=== PATIENT | female | born 1990 | race Caucasian/White ===

== ENCOUNTER 2019-03-27 17:44 | Inpatient (IN) | payer OTHER ==
--- NOTE | 2019-03-27 18:25 | ER Document Report ---
ED Medical Screen (RME) - General Chief Complaint: General Weakness Stated Complaint: syncope Time Seen by Provider: 03/27/19 18:10 Mode of Arrival: Medic Information source: Patient Notes: Patient presents stating that she had a syncopal episode at home in which she suspects that her blood sugar may have been low. Patient is an insulin- dependent diabetic and wears a pump. Patient states that after she passed out she drank a lot of orange juice and then checked her blood sugar and her blood sugar was over 300. Patient states since then she has had lower pelvic pain. Patient is currently 8 weeks G5, P0. Patient denies any urinary symptoms or vaginal bleeding or discharge. Patient complains of generalized weakness to her extremities I have greeted and performed a rapid initial assessment of this patient. A comprehensive ED assessment and evaluation of the patient, analysis of test results and completion of the medical decision making process will be conducted by additional ED providers. TRAVEL OUTSIDE OF THE [place] IN LAST 30 DAYS: No - Related Data Allergies/Adverse Reactions: No Known Allergies Allergy (Verified 03/27/19 17:45) Physical Exam - Abdominal Inspection: Obese Tenderness: Tender - Lower pelvic tenderness
[2019-03-27 19:16] LABS: HEMATOCRIT 40.8 % (36.0-47.0); MEAN CORPUSCULAR HEMOGLOBIN 28.7 pg (27.0-33.4); MEAN CORPUSCULAR HGB CONC 34.4 g/dL (32.0-36.0); MEAN CORPUSCULAR VOLUME 84 fl (80-97); PLATELET COUNT 280 10^3/uL (150-450); RED BLOOD COUNT 4.88 10^6/uL (3.72-5.28); RED CELL DISTRIBUTION WIDTH 12.5 % (11.5-14.0); WHITE BLOOD COUNT 23.2 10^3/uL (4.0-10.5)
[2019-03-27 19:31] LABS: ALBUMIN 4.7 g/dL (3.5-5.0); ALKALINE PHOSPHATASE 68 U/L (38-126); ANION GAP 11 (5-19); ASPARTATE AMINO TRANSFERASE 112 U/L (14-36); BILIRUBIN,DIRECT 0.3 mg/dL (0.0-0.4); BILIRUBIN,TOTAL 1.2 mg/dL (0.2-1.3); BLOOD UREA NITROGEN 17 mg/dL (7-20); CALCIUM 9.9 mg/dL (8.4-10.2); CARBON DIOXIDE 22 mmol/L (22-30); CHLORIDE 103 mmol/L (98-107); GLUCOSE 124 mg/dL (75-110); POTASSIUM 4.3 mmol/L (3.6-5.0); TOTAL PROTEIN 7.4 g/dL (6.3-8.2)
[2019-03-27 19:37] LABS: VENOUS BLOOD BASE EXCESS -3.2 mmol/L; VENOUS BLOOD HCO3 19.9 mmol/L (20-32); VENOUS BLOOD PCO2 30.6 mmHg (35-63); VENOUS BLOOD PH 7.43 (7.30-7.42)
[2019-03-27 19:37] LABS: ABSOLUTE LYMPHOCYTES# (MANUAL) 1.2 10^3/uL (0.5-4.7); ABSOLUTE MONOCYTES # (MANUAL) 1.2 10^3/uL (0.1-1.4); BAND NEUTROPHILS % (MANUAL) 3 % (3-5); BASOPHILS % (MANUAL) 0 % (0-2); EOSINOPHILS % (MANUAL) 0 % (0-6); LYMPHOCYTES % (MANUAL) 4 % (13-45); MONOCYTES % (MANUAL) 5 % (3-13); RBC MORPHOLOGY COMMENT NORMO-CYTIC/CHROMIC; SEGMENTED NEUTROPHILS % (MAN) 87 % (42-78); TOTAL CELLS COUNTED 100
[2019-03-27 19:38] LABS: PLATELET COMMENT ADEQUATE
[2019-03-27] MEDS ORDERED: RINGERS SOLUTION,LACTATED 1,000 ML IV ONE ×2 (20:24→20:49)
--- NOTE | 2019-03-27 20:32 | RADIOLOGY REPORT (SQ) ---
US PELVIS EXAM DATE: 03/27/2019 6:22 PM CDT HISTORY: Early . Pelvic pain. COMPARISON: None. TECHNIQUE: Grayscale, color Doppler, and spectral Doppler ultrasound images of the pelvis were obtained. FINDINGS: There is an intrauterine gestational sac without a yolk sac seen. The crown-rump length measures 1.9 cm corresponding to 8 weeks 3 days of . The heart rate is 170 bpm. The cervix is 2.8 cm in length and closed. The right ovary is not visualized. The left ovary measures 3.4-1.9 cm cyst. Normal color Doppler blood flow is seen in the left ovary. No pelvic free fluid. IMPRESSION: Single live IUP with estimated gestational age 8 weeks 3 days.
[2019-03-27 21:08] LABS: ACETAMINOPHEN 11 ug/mL (10-30)
--- NOTE | 2019-03-27 21:08 | EKG REPORT ---
SEVERITY:- OTHERWISE NORMAL ECG - SINUS RHYTHM RIGHT AXIS DEVIATION : Confirmed by: Yuri Cantor MD 27-Mar-2019 21:08:17
[2019-03-27 21:16] LABS: ALCOHOL < 10 mg/dL (NONE DETECTED); SALICYLATE < 1.0 mg/dL (2.0-20.0)
[2019-03-27 22:59] LABS: APPEARANCE,URINE SLIGHTLY-CLOUDY; BILIRUBIN,URINE NEGATIVE (NEGATIVE); COLOR,URINE YELLOW; GLUCOSE, URINE >=500 mg/dL (NEGATIVE); KETONES,URINE 20 mg/dL (NEGATIVE); LEUKOCYTE ESTERASE,URINE NEGATIVE (NEGATIVE); NITRITE,URINE NEGATIVE (NEGATIVE); PROTEIN,URINE NEGATIVE (NEGATIVE); UROBILINOGEN,URINE NEGATIVE mg/dL (<2.0)
[2019-03-27 23:27] LABS: URINE AMPHETAMINES SCREEN NEGATIVE; URINE BARBITURATES SCREEN NEGATIVE; URINE BENZODIAZEPINES SCREEN NEGATIVE; URINE COCAINE SCREEN NEGATIVE; URINE MARIJUANA (THC) SCREEN NEGATIVE; URINE METHADONE SCREEN NEGATIVE; URINE PHENCYCLIDINE SCREEN NEGATIVE
[2019-03-28] MEDS ORDERED: MORPHINE SULFATE 10 MG/ML INJ IV ONE (00:07)
[2019-03-28] MEDS ORDERED: NORMAL SALINE 1000 ML 1,000 ML IV PRN (01:15)
--- NOTE | 2019-03-28 02:28 | ER Document Report ---
ED General - General Chief Complaint: General Weakness Stated Complaint: syncope Time Seen by Provider: 03/27/19 18:10 Mode of Arrival: Medic Notes: Patient is a 28-year-old female G5, P0 currently 8 weeks type I diabetic with insulin pump presents to the emergency department for a syncopal episode. Patient states she woke up and attempted to get out of bed. States she was feeling lightheaded and dizzy and had a syncopal episode. Patient states she feels as though she was lying on the ground for approximately 45 minutes. Patient's denying loss of consciousness for 45 minutes. States she was just too weak to get herself off the ground. Patient states her insulin tubing had also fallen out at that time. Patient states she thought the syncopal episode was due to her low blood sugars so she drank some orange juice. Patient states when she was able to check her sugar it was noted to be 300 mg/d L. States she did give herself an insulin bolus and was able to get her insulin pump back in place. Patient's denying any nausea, vomiting, dysuria, vaginal bleeding. She is complaining of generalized abdominal cramping in bilateral paraspinal lumbar pain. Patient states when she fell she fell on her buttocks and back. Patient is denying falling on her stomach. Patient's complaint upon initial examination is a pins and needle feelings in bilateral arms and bilateral legs. Patient voices she generally just feels weak. TRAVEL OUTSIDE OF THE [place] IN LAST 30 DAYS: No - Related Data Allergies/Adverse Reactions: No Known Allergies Allergy (Verified 03/27/19 17:45) Past Medical History - General Information source: Patient - Social History Smoking Status: Unknown if Ever Smoked Family History: Reviewed & Not Pertinent Patient has suicidal ideation: No Patient has homicidal ideation: No Review of Systems - Review of Systems Constitutional: denies: Fever EENT: No symptoms reported Cardiovascular: denies: Chest pain, Dyspnea Respiratory: denies: Cough, Short of breath Gastrointestinal: Abdominal pain. denies: Vomiting Genitourinary: denies: Burning, Dysuria, Hematuria, Incontinence Female Genitourinary: See HPI Musculoskeletal: See HPI Skin: No symptoms reported Hematologic/Lymphatic: No symptoms reported Neurological/Psychological: See HPI Physical Exam - Vital signs Vitals: Pulse Ox 98 03/27/19 19:13 - Notes Notes: GENERAL: Alert, interacts well. HEAD: Normocephalic, atraumatic. EYES: Pupils equal, round, and reactive to light. Extraocular movements intact. ENT: Oral mucosa moist, tongue midline. NECK: Full range of motion. Supple. Trachea midline. LUNGS: Clear to auscultation bilaterally, no wheezes, rales, or rhonchi. No respiratory distress. HEART: Regular rate and rhythm. No murmur ABDOMEN: Soft, generalized cramping noted bilateral quadrants, no McBurney's point tenderness no Harper sign. Non-distended. Bowel sounds present in all 4 quadrants. EXTREMITIES: Moves all 4 extremities spontaneously. No edema, normal radial and dorsalis pedis pulses bilaterally. No cyanosis. 5/5 strength noted all 4 extremities. BACK: no cervical, thoracic, lumbar midline tenderness. No saddle anesthesia, normal distal neurovascular exam. NEUROLOGICAL: Alert and oriented x3. Normal speech. PSYCH: Normal affect, normal mood. SKIN: Warm, dry, normal turgor. No rashes or lesions noted. Course - Re-evaluation Re-evalutation: Laboratory 03/27/19 03/27/19 03/27/19 19:03 19:03 19:03 WBC 23.2 H RBC 4.88 Hgb 14.0 Hct 40.8 MCV 84 MCH 28.7 MCHC 34.4 RDW 12.5 Plt Count 280 Lymph % (Auto) Not Reportable [place] % (Auto) Not Reportable Eos % (Auto) Not Reportable Baso % (Auto) Not Reportable Absolute Neuts (auto) Not Reportable Absolute Lymphs (auto) Not Reportable Absolute Monos (auto) Not Reportable Absolute Eos (auto) Not Reportable Absolute Basos (auto) Not Reportable Total Counted 100 Seg Neutrophils % Not Reportable Seg Neuts % (Manual) 87 H Band Neutrophils % 3 Lymphocytes % (Manual) 4 L Atypical Lymphs % 1 Monocytes % (Manual) 5 Eosinophils % (Manual) 0 Basophils % (Manual) 0 Abs Neuts (Manual) 20.9 H Abs Lymphs (Manual) 1.2 Abs Monocytes (Manual) 1.2 Absolute Eos (Manual) 0.0 Abs Basophils (Manual) 0.0 Platelet Comment ADEQUATE RBC Morph Comment NORMO-CYTIC/CHROMIC VBG pH VBG pCO2 VBG HCO3 VBG Base Excess Sodium 136.3 L Potassium 4.3 Chloride 103 Carbon Dioxide 22 Anion Gap 11 BUN 17 Creatinine 0.60 Est GFR ( Amer) > 60 Est GFR (MDRD) Non-Af > 60 Glucose 124 H POC Glucose Hemoglobin A1c % Lactic Acid Calcium 9.9 Magnesium 1.6 Total Bilirubin 1.2 Direct Bilirubin 0.3 Neonat Total Bilirubin Not Reportable Neonat Direct Bilirubin Not Reportable Neonat Indirect Bili Not Reportable AST 112 H ALT 29 Alkaline Phosphatase 68 Creatine Kinase 2697 H Total Protein 7.4 Albumin 4.7 Beta HCG, Quant 654601.00 H Total Beta HCG POSITIVE Urine Color Urine Appearance Urine pH Ur Specific [place] Urine Protein Urine Glucose (UA) Urine Ketones Urine Blood Urine Nitrite Urine Bilirubin Urine Urobilinogen Ur Leukocyte Esterase Urine WBC (Auto) Urine RBC (Auto) Urine Bacteria (Auto) Squamous Epi Cells Auto Urine Mucus (Auto) Urine Ascorbic Acid Salicylates Urine Opiates Screen Urine Methadone Screen Acetaminophen Ur Barbiturates Screen Ur Phencyclidine Scrn Ur Amphetamines Screen U Benzodiazepines Scrn Urine Cocaine Screen U Marijuana (THC) Screen Serum Alcohol Chlamydia DNA (PCR) N.gonorrhoeae DNA (PCR) Blood Type Rhogam Indicated 03/27/19 03/27/19 03/27/19 19:03 19:03 19:05 WBC RBC Hgb Hct MCV MCH MCHC RDW Plt Count Lymph % (Auto) [place] % (Auto) Eos % (Auto) Baso % (Auto) Absolute Neuts (auto) Absolute Lymphs (auto) Absolute Monos (auto) Absolute Eos (auto) Absolute Basos (auto) Total Counted Seg Neutrophils % Seg Neuts % (Manual) Band Neutrophils % Lymphocytes % (Manual) Atypical Lymphs % Monocytes % (Manual) Eosinophils % (Manual) Basophils % (Manual) Abs Neuts (Manual) Abs Lymphs (Manual) Abs Monocytes (Manual) Absolute Eos (Manual) Abs Basophils (Manual) Platelet Comment RBC Morph Comment VBG pH VBG pCO2 VBG HCO3 VBG Base Excess Sodium Potassium Chloride Carbon Dioxide Anion Gap BUN Creatinine Est GFR ( Amer) Est GFR (MDRD) Non-Af Glucose POC Glucose Hemoglobin A1c % 5.8 Lactic Acid Calcium Magnesium Total Bilirubin Direct Bilirubin Neonat Total Bilirubin Neonat Direct Bilirubin Neonat Indirect Bili AST ALT Alkaline Phosphatase Creatine Kinase Total Protein Albumin Beta HCG, Quant Total Beta HCG Urine Color Urine Appearance Urine pH Ur Specific [place] Urine Protein Urine Glucose (UA) Urine Ketones Urine Blood Urine Nitrite Urine Bilirubin Urine Urobilinogen Ur Leukocyte Esterase Urine WBC (Auto) Urine RBC (Auto) Urine Bacteria (Auto) Squamous Epi Cells Auto Urine Mucus (Auto) Urine Ascorbic Acid Salicylates < 1.0 L Urine Opiates Screen Urine Methadone Screen Acetaminophen 11 Ur Barbiturates Screen Ur Phencyclidine Scrn Ur Amphetamines Screen U Benzodiazepines Scrn Urine Cocaine Screen U Marijuana (THC) Screen Serum Alcohol < 10 Chlamydia DNA (PCR) N.gonorrhoeae DNA (PCR) Blood Type B NEGATIVE Rhogam Indicated RHOGAM NOT REQUESTED 03/27/19 03/27/19 03/27/19 19:23 19:24 20:30 WBC RBC Hgb Hct MCV MCH MCHC RDW Plt Count Lymph % (Auto) [place] % (Auto) Eos % (Auto) Baso % (Auto) Absolute Neuts (auto) Absolute Lymphs (auto) Absolute Monos (auto) Absolute Eos (auto) Absolute Basos (auto) Total Counted Seg Neutrophils % Seg Neuts % (Manual) Band Neutrophils % Lymphocytes % (Manual) Atypical Lymphs % Monocytes % (Manual) Eosinophils % (Manual) Basophils % (Manual) Abs Neuts (Manual) Abs Lymphs (Manual) Abs Monocytes (Manual) Absolute Eos (Manual) Abs Basophils (Manual) Platelet Comment RBC Morph Comment VBG pH 7.43 H VBG pCO2 30.6 L VBG HCO3 19.9 L VBG Base Excess -3.2 Sodium Potassium Chloride Carbon Dioxide Anion Gap BUN Creatinine Est GFR ( Amer) Est GFR (MDRD) Non-Af Glucose POC Glucose 124 H Hemoglobin A1c % Lactic Acid 1.1 Calcium Magnesium Total Bilirubin Direct Bilirubin Neonat Total Bilirubin Neonat Direct Bilirubin Neonat Indirect Bili AST ALT Alkaline Phosphatase Creatine Kinase Total Protein Albumin Beta HCG, Quant Total Beta HCG Urine Color Urine Appearance Urine pH Ur Specific [place] Urine Protein Urine Glucose (UA) Urine Ketones Urine Blood Urine Nitrite Urine Bilirubin Urine Urobilinogen Ur Leukocyte Esterase Urine WBC (Auto) Urine RBC (Auto) Urine Bacteria (Auto) Squamous Epi Cells Auto Urine Mucus (Auto) Urine Ascorbic Acid Salicylates Urine Opiates Screen Urine Methadone Screen Acetaminophen Ur Barbiturates Screen Ur Phencyclidine Scrn Ur Amphetamines Screen U Benzodiazepines Scrn Urine Cocaine Screen U Marijuana (THC) Screen Serum Alcohol Chlamydia DNA (PCR) N.gonorrhoeae DNA (PCR) Blood Type Rhogam Indicated 03/27/19 03/27/19 03/27/19 21:28 22:34 22:34 WBC RBC Hgb Hct MCV MCH MCHC RDW Plt Count Lymph % (Auto) [place] % (Auto) Eos % (Auto) Baso % (Auto) Absolute Neuts (auto) Absolute Lymphs (auto) Absolute Monos (auto) Absolute Eos (auto) Absolute Basos (auto) Total Counted Seg Neutrophils % Seg Neuts % (Manual) Band Neutrophils % Lymphocytes % (Manual) Atypical Lymphs % Monocytes % (Manual) Eosinophils % (Manual) Basophils % (Manual) Abs Neuts (Manual) Abs Lymphs (Manual) Abs Monocytes (Manual) Absolute Eos (Manual) Abs Basophils (Manual) Platelet Comment RBC Morph Comment VBG pH VBG pCO2 VBG HCO3 VBG Base Excess Sodium Potassium Chloride Carbon Dioxide Anion Gap BUN Creatinine Est GFR ( Amer) Est GFR (MDRD) Non-Af Glucose POC Glucose 99 Hemoglobin A1c % Lactic Acid Calcium Magnesium Total Bilirubin Direct Bilirubin Neonat Total Bilirubin Neonat Direct Bilirubin Neonat Indirect Bili AST ALT Alkaline Phosphatase Creatine Kinase Total Protein Albumin Beta HCG, Quant Total Beta HCG Urine Color YELLOW Urine Appearance SLIGHTLY-CLOUDY Urine pH 6.0 Ur Specific [place] 1.020 Urine Protein NEGATIVE Urine Glucose (UA) >=500 H Urine Ketones 20 H Urine Blood MODERATE H Urine Nitrite NEGATIVE Urine Bilirubin NEGATIVE Urine Urobilinogen NEGATIVE Ur Leukocyte Esterase NEGATIVE Urine WBC (Auto) 1 Urine RBC (Auto) 65 Urine Bacteria (Auto) TRACE Squamous Epi Cells Auto 1 Urine Mucus (Auto) RARE Urine Ascorbic Acid NEGATIVE Salicylates Urine Opiates Screen Urine Methadone Screen Acetaminophen Ur Barbiturates Screen Ur Phencyclidine Scrn Ur Amphetamines Screen U Benzodiazepines Scrn Urine Cocaine Screen U Marijuana (THC) Screen Serum Alcohol Chlamydia DNA (PCR) NOT DETECTED N.gonorrhoeae DNA (PCR) NOT DETECTED Blood Type Rhogam Indicated 03/27/19 03/27/19 22:34 23:45 WBC RBC Hgb Hct MCV MCH MCHC RDW Plt Count Lymph % (Auto) [place] % (Auto) Eos % (Auto) Baso % (Auto) Absolute Neuts (auto) Absolute Lymphs (auto) Absolute Monos (auto) Absolute Eos (auto) Absolute Basos (auto) Total Counted Seg Neutrophils % Seg Neuts % (Manual) Band Neutrophils % Lymphocytes % (Manual) Atypical Lymphs % Monocytes % (Manual) Eosinophils % (Manual) Basophils % (Manual) Abs Neuts (Manual) Abs Lymphs (Manual) Abs Monocytes (Manual) Absolute Eos (Manual) Abs Basophils (Manual) Platelet Comment RBC Morph Comment VBG pH VBG pCO2 VBG HCO3 VBG Base Excess Sodium Potassium Chloride Carbon Dioxide Anion Gap BUN Creatinine Est GFR ( Amer) Est GFR (MDRD) Non-Af Glucose POC Glucose Hemoglobin A1c % Lactic Acid Calcium Magnesium Total Bilirubin Direct Bilirubin Neonat Total Bilirubin Neonat Direct Bilirubin Neonat Indirect Bili AST ALT Alkaline Phosphatase Creatine Kinase 2224 H Total Protein Albumin Beta HCG, Quant Total Beta HCG Urine Color Urine Appearance Urine pH Ur Specific [place] Urine Protein Urine Glucose (UA) Urine Ketones Urine Blood Urine Nitrite Urine Bilirubin Urine Urobilinogen Ur Leukocyte Esterase Urine WBC (Auto) Urine RBC (Auto) Urine Bacteria (Auto) Squamous Epi Cells Auto Urine Mucus (Auto) Urine Ascorbic Acid Salicylates Urine Opiates Screen NEGATIVE Urine Methadone Screen NEGATIVE Acetaminophen Ur Barbiturates Screen NEGATIVE Ur Phencyclidine Scrn NEGATIVE Ur Amphetamines Screen NEGATIVE U Benzodiazepines Scrn NEGATIVE Urine Cocaine Screen NEGATIVE U Marijuana (THC) Screen NEGATIVE Serum Alcohol Chlamydia DNA (PCR) N.gonorrhoeae DNA (PCR) Blood Type Rhogam Indicated Pts CK is elevated, will admit for rhabdomyolysis. Patient was given 2 L of fluid in the emergency department, maintenance fluids started. 03/28/19 02:27 Discussed this case with DRAGLINE OILER Dr. Christopher. She states from an DRAGLINE OILER point she would be happy to be consulted once the patient is admitted but this should be a medicine admission. 03/28/19 02:33 I have spoken with patient's primary care provider Dr. Leon who will admit the patient to telemetry. 03/28/19 02:34 Patient's EKG shows a sinus rhythm rate of 87, QTc 453, no ST segment elevations or depressions noted. - Vital Signs Vital signs: Temp Pulse Resp BP Pulse Ox 98.9 F 77 18 131/69 H 100 03/28/19 06:50 03/28/19 06:50 03/28/19 06:50 03/28/19 06:50 03/28/19 06:50 - Laboratory Result Diagrams: 03/27/19 19:03 03/27/19 19:03 Laboratory results interpreted by me: 03/27/19 03/27/19 03/27/19 19:03 19:03 19:03 WBC 23.2 H Seg Neuts % (Manual) 87 H Lymphocytes % (Manual) 4 L Abs Neuts (Manual) 20.9 H VBG pH VBG pCO2 VBG HCO3 Sodium 136.3 L Glucose 124 H POC Glucose AST 112 H Creatine Kinase 2697 H Beta HCG, Quant 886918.00 H Urine Glucose (UA) Urine Ketones Urine Blood Salicylates 03/27/19 03/27/19 03/27/19 19:03 19:23 19:24 WBC Seg Neuts % (Manual) Lymphocytes % (Manual) Abs Neuts (Manual) VBG pH 7.43 H VBG pCO2 30.6 L VBG HCO3 19.9 L Sodium Glucose POC Glucose 124 H AST Creatine Kinase Beta HCG, Quant Urine Glucose (UA) Urine Ketones Urine Blood Salicylates < 1.0 L 03/27/19 03/27/19 22:34 23:45 WBC Seg Neuts % (Manual) Lymphocytes % (Manual) Abs Neuts (Manual) VBG pH VBG pCO2 VBG HCO3 Sodium Glucose POC Glucose AST Creatine Kinase 2224 H Beta HCG, Quant Urine Glucose (UA) >=500 H Urine Ketones 20 H Urine Blood MODERATE H Salicylates Discharge - Discharge Clinical Impression: Rhabdomyolysis Qualifiers: Rhabdomyolysis type: traumatic Encounter type: initial encounter Qualified Code(s): T79.6XXA - Traumatic ischemia of muscle, initial encounter Qualifiers: Weeks of gestation: 8 weeks Qualified Code(s): Z3A.08 - 8 weeks gestation of Condition: Stable Disposition: ADMITTED INPATIENT Admitting Provider: Leon Unit Admitted: Telemetry
[2019-03-28 04:14] LABS: CHLAM PCR NOT DETECTED (NOT DETECT)
[2019-03-28] MEDS ORDERED: DEXTROSE 5%-1/2 NORMAL SALINE 1,000 ML IV PRN (05:04)
[2019-03-28] MEDS: ACETAMINOPHEN 325 MG TABLET PO PRN ×2 (05:21→09:10)
--- NOTE | 2019-03-28 07:08 | PDOC H&P ---
History of Present Illness Admission Date/PCP: 03/28/19 02:41 DIEGO GEORGE MD Patient complains of: syncope & generalized weakness History of Present Illness: GWEN ORO is a 28 year old female type 1 diabetic since infancy on pump 8w with WHA who passed out around yesterday 9:30am on getting out of bed. she guesses she was out about 45min. She was sweating and assumed her sugar was low. She did not have manual dexterity to check it. She drank orange juice and called EMS. Sugar was 300. They replaced her pump. She called them twice more for pro gressive weakness and paresthesia in legs > arms. She slept in ER till transfer to floor around 3am. Then she was alarmed to find she could no raise her legs off the bed. Past Medical History Cardiac Medical History: Reports: None Pulmonary Medical History: Reports: None EENT Medical History: Reports: None Neurological Medical History: Reports: None Endocrine Medical History: Reports: Diabetes Mellitus Type 1 Renal/ Medical History: Reports: None Malignancy Medical History: Reports: None Musculoskeltal Medical History: Reports: None Skin Medical History: Reports: None Psychiatric Medical History: Reports: None Traumatic Medical History: Reports: Other - fell to floor last night Hematology: Reports: None Infectious Medical History: Reports: None Past Surgical History Past Surgical History: Reports: Tonsillectomy Social History Information Source: Dr. Bo Lives with: Family Smoking Status: Never Smoker Frequency of Alcohol Use: Occasional Drugs: None Hx Prescription Drug Abuse: No - Advance Directive Resuscitation Status: Full Code Family History Family History: Thyroid Disfunction Parental Family History Reviewed: Yes Children Family History Reviewed: Yes Sibling(s) Family History Reviewed.: Yes Medication/Allergy Allergies/Adverse Reactions: No Known Allergies Allergy (Verified 03/27/19 17:45) Review of Systems Constitutional: PRESENT: weakness. ABSENT: fever(s), headache(s), weight loss Nose, Mouth, and Throat: ABSENT: headache(s), sore throat Cardiovascular: PRESENT: chest pain - minimal soreness to touch. ABSENT: dyspnea on exertion Respiratory: ABSENT: cough Gastrointestinal: PRESENT: abdominal pain - suprapubic cramps, constipation. ABSENT: diarrhea, hematochezia, vomiting Genitourinary: ABSENT: dysuria, hematuria Musculoskeletal: PRESENT: back pain - more upper than lower without radiation Integumentary: ABSENT: rash Neurological: PRESENT: abnormal gait, frequent falls - 4 times yesterday, paresthesias, syncope, weakness Physical Exam Vital Signs: Temp Pulse Resp BP Pulse Ox 98.9 F 20 134/74 H 99 03/28/19 03:01 03/28/19 03:01 03/28/19 03:01 03/28/19 03:01 Intake & Output 03/26/19 03/27/19 03/28/19 07:59 07:59 07:59 Intake Total 2000 Balance 1999 Weight 195 lb 5.273 oz General appearance: PRESENT: mild distress Eye exam: ABSENT: conjunctival injection, scleral icterus Mouth exam: PRESENT: moist, neck supple Neck exam: ABSENT: lymphadenopathy, tenderness, thyromegaly, tracheal deviation Respiratory exam: PRESENT: clear to auscultation aiden Cardiovascular exam: ABSENT: diastolic murmur, irregular rhythm, systolic murmur Pulses: PRESENT: +2 pedal pulses bilateral GI/Abdominal exam: PRESENT: organolmegaly - bladder, tenderness - mild suprap ubic. ABSENT: guarding, rebound Rectal exam: PRESENT: deferred Extremities exam: ABSENT: pedal edema, tenderness Musculoskeletal exam: ABSENT: ambulatory - cant stand with 2 assistants Neurological exam: PRESENT: alert, oriented to person, oriented to place, oriented to time, oriented to situation, abnormal gait - cant stand with 2 assistants or lift L leg off bed. Can barely lift R off bed. Plantar flexion 4.5 dorsiflexion 4.7 of 5.0. Decreased pin prick stocking distribution. OK finger to nose [place] nutrition tech PERRLA., CN II-XII grossly intact, motor sensory deficit. ABSENT: reflexes normal - no knee or ankle jerks, aphasic Psychiatric exam: PRESENT: appropriate affect Skin exam: ABSENT: erythema, warm - legs cool Results Laboratory Results: 03/27/19 19:03 03/27/19 19:03 Abnormal - 24 hr 03/27/19 03/27/19 03/27/19 19:03 19:03 19:03 WBC 23.2 H Seg Neuts % (Manual) 87 H Lymphocytes % (Manual) 4 L Abs Neuts (Manual) 20.9 H VBG pH VBG pCO2 VBG HCO3 Sodium 136.3 L Glucose 124 H POC Glucose AST 112 H Creatine Kinase 2697 H Beta HCG, Quant 396080.00 H Urine Glucose (UA) Urine Ketones Urine Blood Salicylates 03/27/19 03/27/19 03/27/19 19:03 19:23 19:24 WBC Seg Neuts % (Manual) Lymphocytes % (Manual) Abs Neuts (Manual) VBG pH 7.43 H VBG pCO2 30.6 L VBG HCO3 19.9 L Sodium Glucose POC Glucose 124 H AST Creatine Kinase Beta HCG, Quant Urine Glucose (UA) Urine Ketones Urine Blood Salicylates < 1.0 L 03/27/19 03/27/19 22:34 23:45 WBC Seg Neuts % (Manual) Lymphocytes % (Manual) Abs Neuts (Manual) VBG pH VBG pCO2 VBG HCO3 Sodium Glucose POC Glucose AST Creatine Kinase 2224 H Beta HCG, Quant Urine Glucose (UA) >=500 H Urine Ketones 20 H Urine Blood MODERATE H Salicylates Impressions: Obstetrics Ultrasound 03/27/19 18:22 IMPRESSION: Single live IUP with estimated gestational age 8 weeks 3 days. Assessment & Plan - Diagnosis (1) Ascending paralysis Is this a current diagnosis for this admission?: Yes Plan: needs neurology at tertiary (2) Type 1 diabetes mellitus without complications Is this a current diagnosis for this admission?: Yes Plan: pump (3) Rhabdomyolysis Qualifiers: Rhabdomyolysis type: traumatic Encounter type: initial encounter Qualified Code(s): T79.6XXA - Traumatic ischemia of muscle, initial encounter Is this a current diagnosis for this admission?: Yes Plan: ivf (4) Encounter for supervision of other normal , first trimester Is this a current diagnosis for this admission?: Yes Plan: consulted OB - Inpatient Certification Based on my medical assessment, after consideration of the patient's comorbiditi es, presenting symptoms, or acuity I expect that the services needed warrant INPATIENT care.: Yes I certify that my determination is in accordance with my understanding of [facility]'s requirements for reasonable and necessary INPATIENT services [42 CFR 412.3e].: Yes Medical Necessity: Failure to Improve With Outpatient Therapy, Significant Comorbidiites Make Outpatient Treatment Too Risky, Need Close Monitoring Due to Risk of Patient Decompensation, Need For IV Fluids, Need For Continuous Telemetry Monitoring, Need for Neurological Checks, Need for Pain Control, Risk of Complication if Not Cared For in Hospital, Risk of Diagnosis Which Will Require Inpatient Eval/Care/Monitoring
--- NOTE | 2019-03-28 07:39 | PDOC TRANSFER SUMMARY ---
General Admission Date/PCP: 03/28/19 02:41 DIEGO GEORGE MD Resuscitation Status: Full Code - Transfer Diagnosis (1) Ascending paralysis Is this a current diagnosis for this admission?: Yes (2) Type 1 diabetes mellitus without complications Is this a current diagnosis for this admission?: Yes (3) Rhabdomyolysis Is this a current diagnosis for this admission?: Yes (4) Encounter for supervision of other normal , first trimester Is this a current diagnosis for this admission?: Yes - Transfer Medications Transfer Medications: Current Medications Acetaminophen (Tylenol 325 Mg Tablet) 650 mg PO Q6HP PRN PRN Reason: PAIN Stop: 04/27/19 05:03 Last Admin: 03/28/19 05:21 Dose: 650 mg Documented by: Dextrose/Sodium Chloride (D5-1/2ns 1000 Ml Iv Soln) 1,000 mls @ 125 mls/hr IV CONTINUOUS PRN PRN Reason: THIS MED IS NOT "PRN" Stop: 04/27/19 05:03 Last Admin: 03/28/19 05:23 Dose: 125 mls/hr Documented by: - Allergies Allergies/Adverse Reactions: No Known Allergies Allergy (Verified 03/27/19 17:45) Hospital Course Hospital Course: Her leg weakness was worse on awaking with transfer to floor. My exam was consistent with GBS ascending paralysis. Dr Samano neurologist at [facility] will see and hospitalist will admit. Physical Exam Vital Signs: Temp Pulse Resp BP Pulse Ox 98.9 F 77 18 131/69 H 100 03/28/19 06:50 03/28/19 06:50 03/28/19 06:50 03/28/19 06:50 03/28/19 06:50 Intake & Output 03/26/19 03/27/19 03/28/19 07:59 07:59 07:59 Intake Total 2520 Balance 2520 Weight 198 lb 10.184 oz General appearance: PRESENT: mild distress Respiratory exam: PRESENT: clear to auscultation aiden Cardiovascular exam: ABSENT: diastolic murmur, irregular rhythm, systolic murmur GI/Abdominal exam: PRESENT: organolmegaly - bladder till ribera. ABSENT: mass Neurological exam: PRESENT: oriented to situation Psychiatric exam: PRESENT: appropriate affect Results Laboratory Results: 03/27/19 19:03 03/27/19 19:03 0803/27/19 03/27/19 19:03 19:03 19:05 WBC 23.2 H RBC 4.88 Hgb 14.0 Hct 40.8 MCV 84 MCH 28.7 MCHC 34.4 RDW 12.5 Plt Count 280 Seg Neutrophils % Not Reportable VBG pH VBG pCO2 VBG HCO3 VBG Base Excess Sodium 136.3 L Potassium 4.3 Chloride 103 Carbon Dioxide 22 Anion Gap 11 BUN 17 Creatinine 0.60 Est GFR ( Amer) > 60 Glucose 124 H Lactic Acid Calcium 9.9 Magnesium 1.6 Total Bilirubin 1.2 AST 112 H Alkaline Phosphatase 68 Total Protein 7.4 Albumin 4.7 Urine Color Urine Appearance Urine pH Ur Specific [place] Urine Protein Urine Glucose (UA) Urine Ketones Urine Blood Urine Nitrite Ur Leukocyte Esterase Urine WBC (Auto) Urine RBC (Auto) Blood Type B NEGATIVE 03/27/19 03/27/19 03/27/19 19:23 20:30 22:34 WBC RBC Hgb Hct MCV MCH MCHC RDW Plt Count Seg Neutrophils % VBG pH 7.43 H VBG pCO2 30.6 L VBG HCO3 19.9 L VBG Base Excess -3.2 Sodium Potassium Chloride Carbon Dioxide Anion Gap BUN Creatinine Est GFR ( Amer) Glucose Lactic Acid 1.1 Calcium Magnesium Total Bilirubin AST Alkaline Phosphatase Total Protein Albumin Urine Color YELLOW Urine Appearance SLIGHTLY-CLOUDY Urine pH 6.0 Ur Specific [place] 1.020 Urine Protein NEGATIVE Urine Glucose (UA) >=500 H Urine Ketones 20 H Urine Blood MODERATE H Urine Nitrite NEGATIVE Ur Leukocyte Esterase NEGATIVE Urine WBC (Auto) 1 Urine RBC (Auto) 65 Blood Type 03/27/19 03/27/19 03/28/19 19:03 23:45 05:45 Creatine Kinase 2697 H 2224 H 1463 H Impressions: Obstetrics Ultrasound 03/27/19 18:22 IMPRESSION: Single live IUP with estimated gestational age 8 weeks 3 days.
[2019-03-28 08:08] VITALS: BP 97/65
== END 2019-03-28 10:10 | disposition short-term general hospital (02) | DRG 776 ==
LOC: ER 17:44 → EH 03-28 02:41 → 4N 03-28 04:09
PROVIDERS: ADMIT Family Medicine; ATTEND Family Medicine
DX: O99.89 Other specified diseases and conditions complicating pregnancy, childbirth and the puerperium (principal); G61.0 Guillain-Barre syndrome; O24.011 Pre-existing type 1 diabetes mellitus, in pregnancy, first trimester; E10.9 Type 1 diabetes mellitus without complications; R55 Syncope and collapse; Z3A.08 8 weeks gestation of pregnancy; Z79.4 Long term (current) use of insulin; Z96.41 Presence of insulin pump (external) (internal); Z91.81 History of falling
CPT/HCPCS: 36415; 76801; 80053; 80307; 81001; 82550; 82803; 82962; 83036; 83605; 83735; 84702; 85025; 86900; 86901; 87491; 87591; 93005; 93010; 93976; 96361; 96374; 99285; J2270; J7030; J7120

== ENCOUNTER → 2019-06-23 | Outpatient (CLI) | payer OTHER ==
--- NOTE | 2019-06-23 23:42 | EKG REPORT ---
SEVERITY:- BORDERLINE ECG - SINUS RHYTHM PROBABLE LEFT ATRIAL ABNORMALITY BORDERLINE RIGHT AXIS DEVIATION BORDERLINE T ABNORMALITIES, ANTERIOR LEADS : Confirmed by: Italia Covington 23-Jun-2019 23:41:08
--- NOTE | 2019-06-25 11:56 | XCELERA REPORT ---
[address] [address] Transthoracic Echocardiogram Report Name: GWEN ORO Age: 28 yrs Gender: Female : 1990 Patient Status: Outpatient Patient Location: Study Date: 06/23/2019 03:35 PM Height: 69 in Weight: 216 lb BSA: 2.1 m2 Reason For Study: TYPE 1 DM, HTN, PREGANT Ordering Physician: YEHUDA SANCHEZ Performed By: Cole Plummer Interpretation Summary Left ventricular systolic function is normal. The left ventricle is grossly normal size. There is normal left ventricular wall thickness. LV diastolic function could not be adequately assessed. Wall motion cannot be accurately commented on, but no definite regional wall motion abnormalities noted. The right ventricular systolic function is normal. The left atrial size is normal. The right atrium is normal. There is a trace amount of mitral regurgitation There is no mitral valve stenosis. There is a mild amount of aortic regurgitation There is no aortic valve stenosis There is a trace or physiologic amount of tricuspid regurgitation Tricuspid regurgitation jet envelope not well defined to measure RV systolic pressure accurately. The aortic root is not well visualized but is probably normal size. The inferior vena cava appeared normal and decreased > 50% with respiration (RAP 5-10 mmHg) There is no pericardial effusion. MMode/2D Measurements & Calculations RVDd: 3.1 cm LVIDd: 5.2 cm FS: 41.0 % Ao root diam: 2.4 cm IVSd: 0.80 cm LVIDs: 3.1 cm EDV(Teich): 130.2 ml LVPWd: 0.78 cm ESV(Teich): 37.2 ml Ao root area: 4.7 cm2 LA dimension: 2.9 cm EF(Teich): 71.5 % Doppler Measurements & Calculations MV E max esteban: MV P1/2t max esteban: Ao V2 max: LV V1 max P.3 cm/sec 132.7 cm/sec 190.8 cm/sec 9.7 mmHg MV A max esteban: MV P1/2t: 59.6 msec Ao max PG: LV V1 max: 122.3 cm/sec MVA(P1/2t): 3.7 cm2 14.6 mmHg 155.7 cm/sec MV E/A: 1.2 MV dec slope: 652.2 cm/sec2 MV dec time: 0.19 sec PA V2 max: MV P1/2t-pr_phl: 110.8 cm/sec 59.6 msec PA max P.9 mmHg Left Ventricle The left ventricle is grossly normal size. There is normal left ventricular wall thickness. Left ventricular systolic function is normal. LV diastolic function could not be adequately assessed. Wall motion cannot be accurately commented on, but no definite regional wall motion abnormalities noted. Right Ventricle The right ventricle is grossly normal size. The right ventricular systolic function is normal. Atria The right atrium is normal. The left atrial size is normal. Interarterial septum not well visualized and not well dopplered. Cannot comment on ASD/PFO presence. Mitral Valve The mitral valve is grossly normal. There is no mitral valve stenosis. There is a trace amount of mitral regurgitation. Aortic Valve The aortic valve is not well visualized secondary to technical limitations. There is no aortic valve stenosis. There is a mild amount of aortic regurgitation. Tricuspid Valve The tricuspid valve is not well visualized secondary to technical limitations. There is no tricuspid stenosis. There is a trace or physiologic amount of tricuspid regurgitation. Tricuspid regurgitation jet envelope not well defined to measure RV systolic pressure accurately. Pulmonic Valve The pulmonic valve is not well visualized. There is a mild amount of pulmonic regurgitation. Great Vessels The aortic root is not well visualized but is probably normal size. The inferior vena cava appeared normal and decreased > 50% with respiration (RAP 5-10 mmHg). Effusions There is no pericardial effusion. : YEHUDA SANCHEZ, [place]
== END ==
LOC: SP 14:50
PROVIDERS: ATTEND Obstetrics & Gynecology
DX: O24.011 Pre-existing type 1 diabetes mellitus, in pregnancy, first trimester (principal); O13.1 Gestational [pregnancy-induced] hypertension without significant proteinuria, first trimester; I08.0 Rheumatic disorders of both mitral and aortic valves
CPT/HCPCS: 93005; 93010; 93306

== ENCOUNTER 2019-09-23 16:44 | Outpatient (CLI) | payer OTHER ==
[2019-09-23 17:24] LABS: ABSOLUTE BASOPHILS # (AUTO) 0.1 10^3/uL (0.0-0.2); ABSOLUTE EOSINOPHILS # (AUTO) 0.2 10^3/uL (0.0-0.6); ABSOLUTE LYMPHOCYTES (AUTO) 1.8 10^3/uL (0.5-4.7); ABSOLUTE NEUT (AUTO) 11.6 10^3/uL (1.7-8.2); BASOPHILS % (AUTO) 0.6 % (0-2); EOSINOPHILS % (AUTO) 1.1 % (0-6); HEMATOCRIT 43.1 % (36.0-47.0); HEMOGLOBIN 14.5 g/dL (12.0-15.5); LYMPHOCYTES % (AUTO) 12.2 % (13-45); MEAN CORPUSCULAR HEMOGLOBIN 28.5 pg (27.0-33.4); MEAN CORPUSCULAR HGB CONC 33.5 g/dL (32.0-36.0); MEAN CORPUSCULAR VOLUME 85 fl (80-97); MONOCYTES % (AUTO) 6.6 % (3-13); PLATELET COUNT 263 10^3/uL (150-450); RED BLOOD COUNT 5.06 10^6/uL (3.72-5.28); RED CELL DISTRIBUTION WIDTH 13.1 % (11.5-14.0); SEGMENTED NEUTROPHILS % (AUTO) 79.5 % (42-78); TOTAL CELLS COUNTED % (AUTO) 100 %; WHITE BLOOD COUNT 14.6 10^3/uL (4.0-10.5)
[2019-09-23 17:40] LABS: ALBUMIN 3.2 g/dL (3.5-5.0); ANION GAP 11 (5-19); ASPARTATE AMINO TRANSFERASE 33 U/L (14-36); BILIRUBIN,DIRECT 0.2 mg/dL (0.0-0.4); BILIRUBIN,TOTAL 0.4 mg/dL (0.2-1.3); BLOOD UREA NITROGEN 13 mg/dL (7-20); CALCIUM 9.2 mg/dL (8.4-10.2); CARBON DIOXIDE 24 mmol/L (22-30); CHLORIDE 101 mmol/L (98-107); GLUCOSE 79 mg/dL (75-110); NEONATAL BILIRUBIN RESULT 0.2 mg/dL (0.1-1.1); POTASSIUM 4.1 mmol/L (3.6-5.0); URIC ACID 4.5 mg/dL (2.5-6.2)
[2019-09-23 17:47] LABS: ALKALINE PHOSPHATASE 1623 U/L (38-126)
[2019-09-23 18:30] LABS: APPEARANCE,URINE SLIGHTLY-CLOUDY; BILIRUBIN,URINE NEGATIVE (NEGATIVE); COLOR,URINE YELLOW; GLUCOSE, URINE NEGATIVE (NEGATIVE); KETONES,URINE NEGATIVE (NEGATIVE); LEUKOCYTE ESTERASE,URINE SMALL (NEGATIVE); NITRITE,URINE NEGATIVE (NEGATIVE); PROTEIN,URINE NEGATIVE (NEGATIVE); URINE SPECIFIC GRAVITY 1.014; UROBILINOGEN,URINE NEGATIVE mg/dL (<2.0)
[2019-09-23 18:38] LABS: UR PRO/CREAT RATIO RESULT 0.2 mg/mg (0.0-0.2); URINE CREATININE 57.1 mg/dL (16-327); URINE PROTEIN 10.7 mg/dL (<12)
--- NOTE | 2019-09-23 19:10 | Non Stress Test Report ---
Non Stress Test Datetime Report Generated by CPN: 09/23/2019 19:09 DEMOGRAPHIC Test Number: 1 EGA NST: 33.2 INDICATION Indication for Study (NST) Other: pre-eclampsia vs GHTN VITAL SIGNS Temperature - NST: 98.7 Pulse - NST: 84 RESP - NST: 16 NBPSYS NST: 150 NBPDIA NST: 83 MONITORING Monitor Explained: Monitor Explained; Test Explained; Patient Verbalized Understanding Time on Monitor: 09/23/2019 16:58 Time off Monitor: 09/23/2019 18:48 NST Duration: 110 NST INTERVENTIONS NST Interventions: PO Hydration Physician Notified NST: DR. Christianson BABY A: [id number] BABY A Movement : Present Contraction Frequency : irritability FHR Baseline : 130 Accelerations : 15X15 Decelerations : None Variability : Moderate 6-25bpm NST Review: Meets Criteria for Reactive NST NST Review and Verified By : SAutry NST Results: Reactive NST REPORT Report Trigger: Send Report
[2019-09-24 21:12] LABS: 24 HOUR URINE PROTEIN RESULT 128 mg/day (42-225); URINE PROTEIN 7.1 mg/dL (<12)
== END 2019-09-23 18:56 | disposition home or self-care (01) ==
LOC: LC 16:44
PROVIDERS: ATTEND Obstetrics & Gynecology Gynecology
DX: O16.3 Unspecified maternal hypertension, third trimester (principal); Z3A.32 32 weeks gestation of pregnancy
CPT/HCPCS: 36415; 80053; 81001; 82570; 83615; 84156; 84550; 85025; 86850; 86870; 86900; 86901

== ENCOUNTER 2019-09-27 13:29 | Outpatient (CLI) | payer OTHER ==
[2019-09-27 14:01] LABS: ABSOLUTE EOSINOPHILS # (AUTO) 0.2 10^3/uL (0.0-0.6); ABSOLUTE LYMPHOCYTES (AUTO) 1.7 10^3/uL (0.5-4.7); ABSOLUTE MONOCYTES (AUTO) 0.7 10^3/uL (0.1-1.4); ABSOLUTE NEUT (AUTO) 9.5 10^3/uL (1.7-8.2); BASOPHILS % (AUTO) 0.4 % (0-2); EOSINOPHILS % (AUTO) 1.3 % (0-6); HEMATOCRIT 40.1 % (36.0-47.0); HEMOGLOBIN 14.3 g/dL (12.0-15.5); LYMPHOCYTES % (AUTO) 14.1 % (13-45); MEAN CORPUSCULAR HEMOGLOBIN 29.6 pg (27.0-33.4); MEAN CORPUSCULAR HGB CONC 35.6 g/dL (32.0-36.0); MEAN CORPUSCULAR VOLUME 83 fl (80-97); PLATELET COUNT 257 10^3/uL (150-450); RED BLOOD COUNT 4.83 10^6/uL (3.72-5.28); RED CELL DISTRIBUTION WIDTH 13.1 % (11.5-14.0); SEGMENTED NEUTROPHILS % (AUTO) 78.2 % (42-78); TOTAL CELLS COUNTED % (AUTO) 100 %; WHITE BLOOD COUNT 12.1 10^3/uL (4.0-10.5)
[2019-09-27 14:13] LABS: AMORPHOUS SEDIMENT,URINE TRACE /HPF; APPEARANCE,URINE CLOUDY; BILIRUBIN,URINE NEGATIVE (NEGATIVE); COLOR,URINE AMBER; GLUCOSE, URINE 50 mg/dL (NEGATIVE); KETONES,URINE NEGATIVE (NEGATIVE); LEUKOCYTE ESTERASE,URINE MODERATE (NEGATIVE); NITRITE,URINE NEGATIVE (NEGATIVE); PROTEIN,URINE 30 mg/dL (NEGATIVE); URINE SPECIFIC GRAVITY 1.017; UROBILINOGEN,URINE NEGATIVE mg/dL (<2.0)
[2019-09-27 14:16] LABS: ALKALINE PHOSPHATASE 1493 U/L (38-126); ANION GAP 8 (5-19); ASPARTATE AMINO TRANSFERASE 32 U/L (14-36); BILIRUBIN,DIRECT 0.3 mg/dL (0.0-0.4); BILIRUBIN,TOTAL 0.6 mg/dL (0.2-1.3); BLOOD UREA NITROGEN 11 mg/dL (7-20); CALCIUM 8.7 mg/dL (8.4-10.2); CARBON DIOXIDE 21 mmol/L (22-30); CHLORIDE 104 mmol/L (98-107); GLUCOSE 161 mg/dL (75-110); POTASSIUM 4.4 mmol/L (3.6-5.0); TOTAL PROTEIN 5.9 g/dL (6.3-8.2); URIC ACID 4.5 mg/dL (2.5-6.2)
[2019-09-27 14:25] LABS: URINE AMPHETAMINES SCREEN NEGATIVE; URINE BARBITURATES SCREEN NEGATIVE; URINE BENZODIAZEPINES SCREEN NEGATIVE; URINE COCAINE SCREEN NEGATIVE; URINE MARIJUANA (THC) SCREEN NEGATIVE; URINE METHADONE SCREEN NEGATIVE; URINE PHENCYCLIDINE SCREEN NEGATIVE
[2019-09-27] MEDS ORDERED: RINGERS SOLUTION,LACTATED 1,000 ML IV PRN (14:26)
[2019-09-27 14:29] LABS: UR PRO/CREAT RATIO RESULT 0.1 mg/mg (0.0-0.2); URINE CREATININE 116.2 mg/dL (16-327); URINE PROTEIN 10.2 mg/dL (<12)
[2019-09-27] MEDS ORDERED: HYDRALAZINE HCL INJ/PF 20 MG/1 ML SDV ONE (15:54)
[2019-09-27] MEDS ORDERED: HYDRALAZINE HCL INJ/PF 20 MG/1 ML SDV IV ONE (15:56)
[2019-09-27] MEDS ORDERED: NIFEDIPINE 30 MG TAB.ER.24 PO ONE ×2 (16:18→16:21)
--- NOTE | 2019-09-27 17:58 | Non Stress Test Report ---
Non Stress Test Datetime Report Generated by CPN: 09/27/2019 17:58 DEMOGRAPHIC EGA NST: 33.6 VITAL SIGNS Temperature - NST: 98.0 MONITORING Monitor Explained: Monitor Explained; Test Explained; Patient Verbalized Understanding Time on Monitor: 09/27/2019 13:44 Time off Monitor: 09/27/2019 17:17 NST Duration: 213 NST INTERVENTIONS NST Interventions: PO Hydration; Reposition Patient Physician Notified NST: D Hogue MD BABY A: [id number] BABY A Movement : Present Contraction Frequency : none, irritibility R Baseline : 140 Accelerations : 15X15 Decelerations : None Variability : Moderate 6-25bpm NST Review: Meets Criteria for Reactive NST NST Review and Verified By : Madhu Campbell RN NST Results: Reactive NST REPORT Report Trigger: Send Report
== END 2019-09-27 17:46 | disposition home or self-care (01) ==
LOC: LC 13:29
PROVIDERS: ATTEND Obstetrics & Gynecology
PROC: 4A1HXCZ Monitoring of Products of Conception, Cardiac Rate, External Approach (ICD-10-PCS; principal; 2019-09-27)
DX: O13.3 Gestational [pregnancy-induced] hypertension without significant proteinuria, third trimester (principal); O24.013 Pre-existing type 1 diabetes mellitus, in pregnancy, third trimester; E10.9 Type 1 diabetes mellitus without complications; Z3A.33 33 weeks gestation of pregnancy; Z79.4 Long term (current) use of insulin
CPT/HCPCS: 59025; 36415; 83615; 84156; 84550; 82570; 85025; 80053; 81001; 80307; J0360

== ENCOUNTER 2019-09-30 16:51 | Outpatient (CLI) | payer OTHER ==
[2019-09-30] MEDS ORDERED: NIFEDIPINE 30 MG TAB.ER.24 PO ONE ×2 (17:24→17:26)
[2019-09-30 17:40] LABS: APPEARANCE,URINE CLOUDY; BILIRUBIN,URINE NEGATIVE (NEGATIVE); COLOR,URINE YELLOW; GLUCOSE, URINE 150 mg/dL (NEGATIVE); KETONES,URINE 80 mg/dL (NEGATIVE); LEUKOCYTE ESTERASE,URINE MODERATE (NEGATIVE); NITRITE,URINE NEGATIVE (NEGATIVE); PROTEIN,URINE 100 mg/dL (NEGATIVE); URINE SPECIFIC GRAVITY 1.014; UROBILINOGEN,URINE NEGATIVE mg/dL (<2.0)
[2019-09-30 17:46] LABS: HEMATOCRIT 40.7 % (36.0-47.0); HEMOGLOBIN 14.5 g/dL (12.0-15.5); MEAN CORPUSCULAR HEMOGLOBIN 29.9 pg (27.0-33.4); MEAN CORPUSCULAR HGB CONC 35.7 g/dL (32.0-36.0); MEAN CORPUSCULAR VOLUME 84 fl (80-97); PLATELET COUNT 238 10^3/uL (150-450); RED BLOOD COUNT 4.86 10^6/uL (3.72-5.28); RED CELL DISTRIBUTION WIDTH 13.1 % (11.5-14.0); WHITE BLOOD COUNT 15.4 10^3/uL (4.0-10.5)
[2019-09-30 17:47] LABS: URINE AMPHETAMINES SCREEN NEGATIVE; URINE BARBITURATES SCREEN NEGATIVE; URINE BENZODIAZEPINES SCREEN NEGATIVE; URINE COCAINE SCREEN NEGATIVE; URINE MARIJUANA (THC) SCREEN NEGATIVE; URINE METHADONE SCREEN NEGATIVE; URINE PHENCYCLIDINE SCREEN NEGATIVE
[2019-09-30 17:55] LABS: UR PRO/CREAT RATIO RESULT 0.7 mg/mg (0.0-0.2); URINE PROTEIN 57.1 mg/dL (<12)
--- NOTE | 2019-09-30 17:59 | PDOC TRANSFER SUMMARY ---
General Admission Date/PCP: YEHUDA SANCHEZ MD - Transfer Diagnosis (1) IUP (intrauterine ), incidental Is this a current diagnosis for this admission?: Yes (2) Type 1 diabetes Is this a current diagnosis for this admission?: Yes - Transfer Medications Home Medications: Insulin Lispro [Humalog Insulin (Lispro) 100 unit/mL] 4.92 units IM Q1 03/28/19 Nifedipine [Procardia XL 30 mg Tablet] 30 mg PO BID 09/30/19 Prenat 115/Iron Fum/Folic/Dss [ 19 Tablet] 1 each PO DAILY 09/30/19 - Allergies Allergies/Adverse Reactions: No Known Allergies Allergy (Verified 09/23/19 17:19) Physical Exam Vital Signs: Intake & Output 09/29/19 09/30/19 10/01/19 06:59 06:59 06:59 Weight 115.3 kg General appearance: PRESENT: no acute distress Respiratory exam: PRESENT: clear to auscultation aiden Cardiovascular exam: PRESENT: RRR GI/Abdominal exam: PRESENT: soft Results Laboratory Results: 09/30/19 16:55 Urine Color YELLOW Urine Appearance CLOUDY Urine pH 6.0 Ur Specific [place] 1.014 Urine Protein 100 H Urine Glucose (UA) 150 H Urine Ketones 80 H Urine Blood NEGATIVE Urine Nitrite NEGATIVE Ur Leukocyte Esterase MODERATE H Urine WBC (Auto) 101 Urine RBC (Auto) 2 Plan Discharge Plan: Transfer to [facility] with dx of pre-eclampsia at 34 weeks. Time Spent: Greater than 30 Minutes
[2019-09-30 18:05] LABS: ALBUMIN 3.2 g/dL (3.5-5.0); ANION GAP 13 (5-19); ASPARTATE AMINO TRANSFERASE 42 U/L (14-36); BILIRUBIN,DIRECT 0.3 mg/dL (0.0-0.4); BILIRUBIN,TOTAL 0.5 mg/dL (0.2-1.3); BLOOD UREA NITROGEN 13 mg/dL (7-20); CALCIUM 8.7 mg/dL (8.4-10.2); CARBON DIOXIDE 19 mmol/L (22-30); CHLORIDE 96 mmol/L (98-107); GLUCOSE 134 mg/dL (75-110); NEONATAL BILIRUBIN RESULT 0.3 mg/dL (0.1-1.1); POTASSIUM 4.4 mmol/L (3.6-5.0); TOTAL PROTEIN 6.2 g/dL (6.3-8.2); URIC ACID 5.3 mg/dL (2.5-6.2)
[2019-09-30 18:12] LABS: ALKALINE PHOSPHATASE 1868 U/L (38-126)
[2019-09-30] MEDS ORDERED: RINGERS SOLUTION,LACTATED 1,000 ML IV PRN (18:27)
== END 2019-09-30 20:35 | disposition short-term general hospital (02) ==
LOC: LC 16:51
PROVIDERS: ATTEND Obstetrics & Gynecology Gynecology
PROC: 4A1HXCZ Monitoring of Products of Conception, Cardiac Rate, External Approach (ICD-10-PCS; principal; 2019-09-30)
DX: O14.93 Unspecified pre-eclampsia, third trimester (principal); O24.013 Pre-existing type 1 diabetes mellitus, in pregnancy, third trimester; E10.9 Type 1 diabetes mellitus without complications; Z79.4 Long term (current) use of insulin; Z3A.34 34 weeks gestation of pregnancy
CPT/HCPCS: 36415; 80053; 80307; 81001; 82570; 83615; 84156; 84550; 85027; 86850; 86870; 86900; 86901